=== PATIENT | male | born 1985 | race African-American/Black ===

== ENCOUNTER 2021-09-20 12:28 | Emergency (ER) | payer BC, OTHER ==
[~2021-09-20] VITALS: Ht 180.3 cm; Wt 106.6 kg
[2021-09-20 12:37] VITALS: BP 125/70
[2021-09-20] MEDS ORDERED: IBUP800T27 PO (15:11)
[2021-09-20] MEDS ORDERED: METH750T22 PO (15:11)
[2021-09-20] MEDS ORDERED: IBUPROFEN 800 MG TAB PO ONE (15:15)
== END 2021-09-20 15:34 | disposition home or self-care (01) ==
LOC: ER 12:28
DX: S16.1XXA Strain of muscle, fascia and tendon at neck level, initial encounter (principal); S39.012A Strain of muscle, fascia and tendon of lower back, initial encounter; V43.52XA Car driver injured in collision with other type car in traffic accident, initial encounter; Y93.89 Activity, other specified; Y92.410 Unspecified street and highway as the place of occurrence of the external cause; Y99.8 Other external cause status
CPT/HCPCS: 72040; 72100